=== PATIENT | female | born 1975 | race African-American/Black ===

== ENCOUNTER 2019-04-08 18:44 | Inpatient (IN) | payer OTHER ==
[2019-04-08 19:03] VITALS: BMI 17.4
--- NOTE | 2019-04-08 20:32 | HP ---
CIWA Score - Admission Criteria OASAS Guidelines: Admission for Medically Managed Detox: Requires at least one of the followin. CIWA greater than 12 2. Seizures within the past 24 hours 3. Delirium tremens within the past 24 hours 4. Hallucinations within the past 24 hours 5. Acute intervention needed for co occurring medical disorder 6. Acute intervention needed for co occurring psychiatric disorder 7. Severe withdrawal that cannot be handled at a lower level of care (continued vomiting, continued diarrhea, abnormal vital signs) requiring intravenous medication and/or fluids 8. Admission ROS S - HPI Chief Complaint: Seeking admission to Rehab Allergies/Adverse Reactions: Allergies Allergy/AdvReac Type Severity Reaction Status Date / Time ibuprofen [From Motrin] Allergy Itching Verified 04/08/19 18:56 History of Present Illness: 43 years old female with a history of marijuana and cocaine dependence is seeking admission to Rehab. Patient reports that she was in Rehab. in 2007. Patient denies past medical history and suicidal ideation at this time Exam Limitations: No Limitations - Ebola screening Have you traveled outside of the country in the last 21 days: No (N) Have you had contact with anyone from an Ebola affected area: No Do you have a fever: No - Review of Systems Constitutional: No Symptoms Reported EENT: reports: No Symptoms Reported Respiratory: reports: No Symptoms reported Cardiac: reports: No Symptoms Reported GI: reports: No Symptoms Reported : reports: No Symptoms Reported Musculoskeletal: reports: No Symptoms Reported Integumentary: reports: No Symptoms Reported Neuro: reports: No Symptoms reported Endocrine: reports: No Symptoms Reported Hematology: reports: No Symptoms Reported Psychiatric: reports: No Sypmtoms Reported, Mood/Affect Appropiate, Orientated x3 Other Systems: Reviewed and Negative Patient History - Patient Medical History Hx Anemia: No Hx Asthma: No Hx Chronic Obstructive Pulmonary Disease (COPD): No Hx Cancer: No Hx Cardiac Disorders: No Hx Congestive Heart Failure: No Hx Hypertension: No Hx Hypercholesterolemia: No HX Cerebrovascular Accident: No Hx Seizures: No Hx Diabetes: No Hx Gastrointestinal Disorders: No Hx Liver Disease: No Hx Genitourinary Disorders: No Hx Sexually Transmitted Disorders: No Hx Renal Disease (ESRD): No Hx Thyroid Disease: No Hx Human Immunodeficiency Virus (HIV): No (Negative 2019) Hx Hepatitis C: No Hx Depression: Yes (ot on medication) Hx Suicide Attempt: No (Denies suicidal ideation at this time) Hx Bipolar Disorder: No Hx Schizophrenia: No - Patient Surgical History Past Surgical History: No - PPD History Previous Implant?: Yes Documented Results: Negative w/o proof PPD to be Administered?: Yes - Reproductive History Patient is a Female of Child Bearing Age (11 -55 yrs old): Yes Last Menstrual Period: 03/20/19 Patient : No - Smoking Cessation Smoking history: Current every day smoker Have you smoked in the past 12 months: Yes Aproximately how many cigarettes per day: 3 Hx Chewing Tobacco Use: Yes Initiated information on smoking cessation: No 'Breaking Loose' booklet given: 04/08/19 - Substance & Tx. History Hx Alcohol Use: No Hx Substance Use: Yes Substance Use Type: Cocaine, Marijuana Hx Substance Use Treatment: Yes ([facility]. [place], [place]) - Substances abused Marijuana/Hashish Substance route: Smoking Frequency: Daily Amount used: $30 Age of first use: 13 Date of last use: 04/08/19 Cocaine Substance route: Inhalation Frequency: Daily Amount used: $100 Age of first use: 31 Date of last use: 04/07/19 Admission Physical Exam S - Vital Signs Vital Signs: Vital Signs - 24 hr 04/08/19 18:48 Temperature 97.8 F Pulse Rate 62 Respiratory 20 Rate Blood Pressure 115/69 - Physical General Appearance: Yes: Nourished, Appropriately Dressed HEENTM: Yes: Within Normal Limits, EOMI, Normal ENT Inspection, Normocephalic, Normal Voice, DANIELLE Respiratory: Yes: Lungs Clear, Normal Breath Sounds, No Respiratory Distress Neck: Yes: Within Normal Limits, No masses,lesions,Nodules Breast: Yes: Breast Exam Deferred, Surgical Scar Cardiology: Yes: Regular Rhythm Abdominal: Yes: Normal Bowel Sounds Genitourinary: Yes: Within Normal Limits Back: Yes: Normal Inspection Musculoskeletal: Yes: Within Normal Limits, Gait Steady Extremities: Yes: Normal Inspection Neurological: Yes: Normal Mood/Affect Integumentary: Yes: Within Normal Limits, Warm Lymphatic: Yes: Within Normal Limits - Diagnostic (1) Marijuana dependence Current Visit: Yes Status: Acute (2) Cocaine dependence Current Visit: Yes Status: Acute (3) Nicotine dependence Current Visit: Yes Status: Acute (4) Depression Current Visit: Yes Status: Acute Qualifiers: Depression Type: unspecified Qualified Code(s): F32.9 - Major depressive disorder, single episode, unspecified Cleared for Admission [facility] - Detox or Rehab [facility] Level of Care: Observation Bed Claeared for Rehab Admission: Yes Breathalyzer - Breathalyzer Breathalyzer: 0 Urine Drug Screen - Test Device Lot number: [id number] Expiration date: 12/03/20 - Control Is test valid?: Yes - Results Drug screen NEGATIVE: No Urine drug screen results: THC-Marijuana, DANA-Cocaine Inpatient Rehab Admission - Rehab Decision to Admit Inpatient rehab admission?: Yes - Initial Determination Are CD services needed?: No Free of communicable disease: Yes Not in need of hospitalization: Yes - Rehab Admission Criteria Previous failed treatment: Yes Poor recovery environment: Yes Comorbidities: Yes Lacks judgement: No Patient is meeting Inpatient Rehab admission criteria:: Yes
[2019-04-08] MEDS ORDERED: P-EPHED 60MG/TRIPROLIDI 2.5MG TABLET PO PRN (20:47)
[2019-04-08] MEDS ORDERED: guaiFENesin 200 MG/10 ML 10 ML UNIT-DOSE CUPS PO PRN (20:47)
[2019-04-08] MEDS ORDERED: MENTHOL/PHENOL 1 EACH UD MM PRN (20:47)
[2019-04-08] MEDS ORDERED: LOPERAMIDE HCL 2 MG CAPSULE PO PRN (20:47)
[2019-04-08] MEDS ORDERED: MAGNESIUM CITRATE 300 ML BOTTLE PO PRN (20:47)
[2019-04-08] MEDS ORDERED: MAGNESIUM HYDROX 2400MG/30ML ORAL SUSPENSION 30 ML CUP PO PRN (20:47)
[2019-04-08] MEDS ORDERED: NICOTINE POLACRILEX 2 MG GUM BUC PRN (20:47)
[2019-04-08] MEDS ORDERED: MAG HYDROX/AL HYDROX/SIMETH 30 ML UNIT-DOSE CUP PO PRN (20:47)
[2019-04-08] MEDS: THIAMINE HCL 100 MG TABLET (FP) PO SCH (22:18)
--- NOTE | 2019-04-09 09:04 | CONSULT ---
[facility] Psychiatric Consult - Data Date of interview: 04/09/19 Admission source: [facility] Identifying data: Patient is a 43 year old single female, mother of four, domiciled, and currently employed. This is one of multiple admissions for patient. Patient admitted to for marijuana and cocaine dependence. Substance Abuse History: Smoking Cessation. Smoking history: Current every day smoker. Have you smoked in the past 12 months: Yes. Aproximately how many cigarettes per day: 3. Hx Chewing Tobacco Use: Yes. Initiated information on smoking cessation: No. 'Breaking Loose' booklet given: 04/08/19. - Substance & Tx. History. Hx Alcohol Use: No. Hx Substance Use: Yes. Substance Use Type : Cocaine, Marijuana. Hx Substance Use Treatment: Yes ([facility]. [place], [place]). - Substances abused. Marijuana/Hashish. Substance route: Smoking. Frequency: Daily. Amount used: $30. Age of first use: 13. Date of last use: 04/08/19. Cocaine. Substance route: Inhalation. Frequency: Daily. Amount used: $100. Age of first use: 31. Date of last use: 04/07/19 Medical History: denies. Psychiatric History: Patient denies history of psychiatric hospitalizations, outpaient care, and suicide attempt. Reports receiving seroquel for insomnia when she was admitted to rehab on [facility] in 2006. At present patient reports stable mood but is experiencing mild anxiety and difficulty sleeping. Physical/Sexual Abuse/Trauma History: denies. Mental Status Exam - Mental Status Exam Alert and Oriented to: Time, Place, Person Cognitive Function: Good Patient Appearance: Well Groomed Mood: Euthymic Affect: Mood Congruent Patient Behavior: Cooperative Speech Pattern: Appropriate Voice Loudness: Normal Thought Process: Goal Oriented Thought Disorder: Not Present Hallucinations: Denies Suicidal Ideation: Denies Homicidal Ideation: Denies Insight/Judgement: Poor Sleep: Poorly Appetite: Fair Muscle strength/Tone: Normal Gait/Station: Normal Psychiatric Findings - Problem List ([place] 1, 2,3) (1) Substance-induced sleep disorder Current Visit: Yes Status: Acute (2) Cocaine dependence Current Visit: Yes Status: Acute (3) Marijuana dependence Current Visit: Yes Status: Acute - Initial Treatment Plan Initial Treatment Plan: Psychoeducation provided. Rehab in progress. Patient encouraged to accept melatonin 5mg for insomnia. Patient not interested in accepting seroquel for insomnia. Will also order vistaril 25mg q6h for anxiety. Benefits and side effects discussed. Verbal consent given.
[2019-04-09] MEDS: PRENATAL VITAMINS W/ FOLIC ACID TABLET (FP) PO SCH (10:02)
[2019-04-09] MEDS: NICOTINE 14 MG/24 HOURS TOPICAL PATCH TD SCH (10:02)
[2019-04-09 10:32] LABS: URINE APPEARANCE CLOUDY; URINE BILIRUBIN NEGATIVE (NEGATIVE); URINE COLOR YELLOW; URINE GLUCOSE (UA) NEGATIVE (NEGATIVE); URINE KETONE NEGATIVE (NEGATIVE); URINE LEUK ESTERASE NEGATIVE (NEGATIVE); URINE NITRITE NEGATIVE (NEGATIVE); URINE PROTEIN NEGATIVE (NEGATIVE)
--- NOTE | 2019-04-09 12:02 | EKG ---
Test Reason : Blood Pressure : / mmHG Vent. Rate : 062 BPM Atrial Rate : 062 BPM P-R Int : 144 ms QRS Dur : 100 ms QT Int : 438 ms P-R-T Axes : 049 061 042 degrees QTc Int : 444 ms NORMAL SINUS RHYTHM NORMAL ECG NO PREVIOUS ECGS AVAILABLE Confirmed by ALLEN BROWN MD ([id number]) on 04/09/2019 12:02:14 PM Referred By: Confirmed By:ALLEN BROWN MD
[2019-04-09 15:07] LABS: HEMATOCRIT 32.9 % (32.4-45.2); HEMOGLOBIN 10.9 GM/dL (10.7-15.3); MCH 29.4 pg (25.7-33.7); MEAN CELL VOLUME 88.9 fl (80-96); MEAN PLT VOLUME 9.2 fl (7.5-11.1); PLATELET COUNT 284 K/MM3 (134-434); RDW 15.7 % (11.6-15.6); WHITE BLOOD COUNT 3.2 K/mm3 (4.0-10.0)
[2019-04-09 15:10] LABS: ALBUMIN 3.4 g/dl (3.4-5.0); BILIRUBIN,TOTAL 0.2 mg/dL (0.2-1); BLOOD UREA NITROGEN 8.1 mg/dL (7-18); CALCIUM 8.7 mg/dL (8.5-10.1); CREATININE 0.6 mg/dL (0.55-1.3); POTASSIUM 3.5 mmol/L (3.5-5.1); TOT PROT 6.9 g/dl (6.4-8.2)
[2019-04-09] MEDS ORDERED: PT OWN MED DRAWER 7, Y5N ONE ×3 (19:51→23:32)
[2019-04-09] MEDS: MELATONIN 5 MG TABLETS PO PRN (21:25)
[2019-04-09] MEDS: THIAMINE HCL 100 MG TABLET (FP) PO SCH (21:25)
[2019-04-10] MEDS: PRENATAL VITAMINS W/ FOLIC ACID TABLET (FP) PO SCH (09:10)
[2019-04-10] MEDS: NICOTINE 14 MG/24 HOURS TOPICAL PATCH TD SCH (09:11)
[2019-04-10] MEDS: THIAMINE HCL 100 MG TABLET (FP) PO SCH (21:36)
[2019-04-10] MEDS: MELATONIN 5 MG TABLETS PO PRN (21:36)
[2019-04-10] MEDS: hydrOXYzine PAMOATE 25 MG CAPSULE (FP) PO PRN (21:37)
[2019-04-10] MEDS ORDERED: PT OWN MED DRAWER 7, Y5N ONE (21:53)
[2019-04-10] MEDS ORDERED: ACETAMINOPHEN 325 MG TABLET (FP) ONE (21:53)
[2019-04-11] MEDS: PRENATAL VITAMINS W/ FOLIC ACID TABLET (FP) PO SCH (09:47)
[2019-04-11] MEDS: NICOTINE 14 MG/24 HOURS TOPICAL PATCH TD SCH (09:47)
[2019-04-11] MEDS: THIAMINE HCL 100 MG TABLET (FP) PO SCH (21:42)
[2019-04-11] MEDS: MELATONIN 5 MG TABLETS PO PRN (21:42)
[2019-04-11] MEDS: hydrOXYzine PAMOATE 25 MG CAPSULE (FP) PO PRN (21:43)
[2019-04-12] MEDS: NICOTINE 14 MG/24 HOURS TOPICAL PATCH TD SCH (09:54)
[2019-04-12] MEDS: PRENATAL VITAMINS W/ FOLIC ACID TABLET (FP) PO SCH (09:54)
[2019-04-12] MEDS: ACETAMINOPHEN 325 MG TABLET (FP) PO PRN (10:50)
--- NOTE | 2019-04-12 13:12 | PN ---
[facility] Progress Note Note: Patient presents with c/o migraine headache and mild nausea. Patient states she has taken Imitrex in past for symptoms . Patient denies dizziness, aura and blurry vision. Vital Signs Temperature 97.9 F 04/12/19 07:09 Pulse Rate 62 04/12/19 07:09 Respiratory Rate 18 04/12/19 07:09 Blood Pressure 120/55 L 04/12/19 07:09 O2 Sat by Pulse Oximetry (%) Laboratory Tests 04/08/19 04/08/19 04/08/19 10:00 10:00 10:00 WBC 3.2 L RBC 3.70 Hgb 10.9 Hct 32.9 MCV 88.9 MCH 29.4 MCHC 33.0 RDW 15.7 H Plt Count 284 MPV 9.2 Sodium 142 Potassium 3.5 Chloride 107 Carbon Dioxide 28 Anion Gap 7 L BUN 8.1 Creatinine 0.6 Est GFR (CKD-EPI)AfAm 129.39 Est GFR (CKD-EPI)NonAf 111.64 Random Glucose 83 Calcium 8.7 Total Bilirubin 0.2 AST 12 L ALT 11 L Alkaline Phosphatase 73 Total Protein 6.9 Albumin 3.4 Urine Color Urine Appearance Urine pH Ur Specific [place] Urine Protein Urine Glucose (UA) Urine Ketones Urine Blood Urine Nitrite Urine Bilirubin Urine Urobilinogen Ur Leukocyte Esterase POC Urine HCG, Qual RPR Titer Nonreactive 04/08/19 04/09/19 20:01 09:00 WBC RBC Hgb Hct MCV MCH MCHC RDW Plt Count MPV Sodium Potassium Chloride Carbon Dioxide Anion Gap BUN Creatinine Est GFR (CKD-EPI)AfAm Est GFR (CKD-EPI)NonAf Random Glucose Calcium Total Bilirubin AST ALT Alkaline Phosphatase Total Protein Albumin Urine Color Yellow Urine Appearance Cloudy Urine pH 7.0 Ur Specific [place] 1.022 Urine Protein Negative Urine Glucose (UA) Negative Urine Ketones Negative Urine Blood Negative Urine Nitrite Negative Urine Bilirubin Negative Urine Urobilinogen 1.0 Ur Leukocyte Esterase Negative POC Urine HCG, Qual Negative RPR Titer PE alert and oriented x 3 skin warm and dry +perrla, eoms intact bl neck supple, no jvd ext full rom, amb ad allan A/P migraines will start imitrex 25mg po bid prn monitor clinically
[2019-04-12] MEDS: THIAMINE HCL 100 MG TABLET (FP) PO SCH (21:16)
[2019-04-12] MEDS: MELATONIN 5 MG TABLETS PO PRN (21:16)
[2019-04-12] MEDS: hydrOXYzine PAMOATE 25 MG CAPSULE (FP) PO PRN (21:18)
[2019-04-13] MEDS: NICOTINE 14 MG/24 HOURS TOPICAL PATCH TD SCH (09:54)
[2019-04-13] MEDS: PRENATAL VITAMINS W/ FOLIC ACID TABLET (FP) PO SCH (09:54)
[2019-04-13] MEDS: SUMAtriptan SUCCINATE 25 MG TABLET PO PRN (10:02)
[2019-04-13] MEDS: hydrOXYzine PAMOATE 25 MG CAPSULE (FP) PO PRN ×2 (11:22→22:24)
--- NOTE | 2019-04-13 12:57 | PN ---
Psychiatric Progress Note Vital Signs: Vital Signs Period Temp Pulse Resp BP Sys/Layne Pulse Ox Last 24 Hr 97.9 F 71 16-18 118/78 Date of Session: 04/13/19 Chief Complaint:: " I have anxiety and i am not sleeping at all." HPI: Patient admitted to for marijuana and cocaine dependence. Patient currently c/o insomnia. ROS: Patient is coherent, alert + oriented X3. Current Medications: Active Medications Generic Name Dose Route Start Last Admin Trade Name Freq PRN Reason Stop Dose Admin Acetaminophen 650 mg 04/08/19 20:47 04/12/19 10:50 Tylenol - PO 650 mg Q4H PRN Administration FEVER Al Hydroxide/Mg Hydroxide 30 ml 04/08/19 20:47 Mylanta Oral Suspension - PO Q6H PRN DYSPEPSIA Eucalyptus/Menthol/Phenol/Sorbitol 1 each 04/08/19 20:47 Cepastat Lozenge - MM Q4H PRN SORE THROAT Guaifenesin 10 ml 04/08/19 20:47 Robitussin - PO Q6H PRN COUGH Hydroxyzine Pamoate 25 mg 04/09/19 09:14 04/13/19 11:22 Vistaril - PO 25 mg Q6H PRN Administration ANXIETY Loperamide HCl 4 mg 04/08/19 20:47 Imodium - PO Q6H PRN DIARRHEA Magnesium Citrate 300 ml 04/08/19 20:47 Citroma - PO Q48H PRN CONSTIPATION Magnesium Hydroxide 30 ml 04/08/19 20:47 Milk Of Magnesia - PO DAILY PRN CONSTIPATION Melatonin 5 mg 04/08/19 22:00 04/12/19 21:16 Melatonin PO 5 mg HS PRN Administration INSOMNIA Nicotine 14 mg 04/09/19 10:00 04/13/19 09:54 Nicoderm Patch - TD Not Given DAILY ALEXANDER Nicotine Polacrilex 2 mg 04/08/19 20:47 Nicorette Gum - BUC Q2H PRN NICOTINE REPLACEMENT RX Multivit/Folic Acid/Iron 1 tab 04/09/19 10:00 04/13/19 09:54 Vitamins (Sjr) - PO 1 tab DAILY ALEXANDER Administration Pseudoephedrine/Triprolidine 1 combo 04/08/19 20:47 Actifed - PO TID PRN NASAL CONGESTION Sumatriptan Succinate 25 mg 04/12/19 13:08 04/13/19 10:02 Imitrex - PO 25 mg BID PRN Administration HEADACHE Thiamine HCl 100 mg 04/08/19 22:00 04/12/19 21:16 Vitamin B1 - PO 100 mg HS ALEXANDER Administration Medication(s) Change(s): Yes. Current Side Effect: No Lab tests ordered: No Lab tests reviewed: Yes Provider note:: Patient reports anxiety amd difficulty sleeping. Patient able to accept vistaril 25mg this morning with favorable effects. Stated it was the first time she took the medication and stated that it was effective. Will order Belsomra 10mg HS PRN for insomnia. Patient educated on the importance of sleep hygiene. Benefits and side effects discussed. Verbal consent given. Total face to face time:: 25 Mental Status Exam - Mental Status Exam Alert and Oriented to: Time, Place, Person Cognitive Function: Good Patient Appearance: Well Groomed Mood: Euthymic Affect: Mood Congruent Patient Behavior: Cooperative Speech Pattern: Appropriate Voice Loudness: Normal Thought Process: Goal Oriented Thought Disorder: Not Present Hallucinations: Denies Suicidal Ideation: Denies Homicidal Ideation: Denies Insight/Judgement: Poor Sleep: Poorly Appetite: Fair Muscle strength/Tone: Normal Gait/Station: Normal Psychiatric Treatment Plan - Problem List (1) Substance-induced sleep disorder Current Visit: Yes (2) Cocaine dependence Current Visit: Yes (3) Marijuana dependence Current Visit: Yes
[2019-04-13] MEDS ORDERED: PT OWN MED DRAWER 7, Y5N ONE ×3 (21:02→22:29)
[2019-04-13] MEDS: THIAMINE HCL 100 MG TABLET (FP) PO SCH (21:17)
[2019-04-13] MEDS: MELATONIN 5 MG TABLETS PO PRN (21:17)
[2019-04-13] MEDS ORDERED: SUVOREXANT 10 MG TABLET PO PRN (22:00)
[2019-04-14] MEDS: NICOTINE 14 MG/24 HOURS TOPICAL PATCH TD SCH (09:39)
[2019-04-14] MEDS: SUMAtriptan SUCCINATE 25 MG TABLET PO PRN (09:39)
[2019-04-14] MEDS: PRENATAL VITAMINS W/ FOLIC ACID TABLET (FP) PO SCH (09:39)
[2019-04-14] MEDS: THIAMINE HCL 100 MG TABLET (FP) PO SCH (21:34)
[2019-04-14] MEDS: MELATONIN 5 MG TABLETS PO PRN (21:34)
[2019-04-15] MEDS: ACETAMINOPHEN 325 MG TABLET (FP) PO PRN (09:49)
[2019-04-15] MEDS: NICOTINE 14 MG/24 HOURS TOPICAL PATCH TD SCH (09:50)
[2019-04-15] MEDS: PRENATAL VITAMINS W/ FOLIC ACID TABLET (FP) PO SCH (09:50)
--- NOTE | 2019-04-15 11:01 | PN ---
Psychiatric Progress Note Vital Signs: Vital Signs Period Temp Pulse Resp BP Sys/Layne Pulse Ox Last 24 Hr 98.1 F 80 16-16 148/69 Date of Session: 04/15/19 Chief Complaint:: " I'm not sleeping at all." HPI: Patient admitted to [facility] for marijuana and cocaine dependence. ROS: Patient is coherent, alert + oriented X3. Current Medications: Active Medications Generic Name Dose Route Start Last Admin Trade Name Freq PRN Reason Stop Dose Admin Acetaminophen 650 mg 04/08/19 20:47 04/15/19 09:49 Tylenol - PO 650 mg Q4H PRN Administration FEVER Al Hydroxide/Mg Hydroxide 30 ml 04/08/19 20:47 Mylanta Oral Suspension - PO Q6H PRN DYSPEPSIA Eucalyptus/Menthol/Phenol/Sorbitol 1 each 04/08/19 20:47 Cepastat Lozenge - MM Q4H PRN SORE THROAT Guaifenesin 10 ml 04/08/19 20:47 Robitussin - PO Q6H PRN COUGH Hydroxyzine Pamoate 25 mg 04/09/19 09:14 04/13/19 22:24 Vistaril - PO 25 mg Q6H PRN Administration ANXIETY Loperamide HCl 4 mg 04/08/19 20:47 Imodium - PO Q6H PRN DIARRHEA Magnesium Citrate 300 ml 04/08/19 20:47 Citroma - PO Q48H PRN CONSTIPATION Magnesium Hydroxide 30 ml 04/08/19 20:47 Milk Of Magnesia - PO DAILY PRN CONSTIPATION Melatonin 10 mg 04/14/19 22:00 04/14/19 21:34 Melatonin PO 10 mg HS PRN Administration INSOMNIA Nicotine 14 mg 04/09/19 10:00 04/15/19 09:50 Nicoderm Patch - TD Not Given DAILY ALEXANDER Nicotine Polacrilex 2 mg 04/08/19 20:47 Nicorette Gum - BUC Q2H PRN NICOTINE REPLACEMENT RX Multivit/Folic Acid/Iron 1 tab 04/09/19 10:00 04/15/19 09:50 Vitamins (Sjr) - PO 1 tab DAILY ALEXANDER Administration Pseudoephedrine/Triprolidine 1 combo 04/08/19 20:47 Actifed - PO TID PRN NASAL CONGESTION Sumatriptan Succinate 25 mg 04/12/19 13:08 04/14/19 09:39 Imitrex - PO 25 mg BID PRN Administration HEADACHE Suvorexant 10 mg 04/13/19 22:00 04/13/19 21:17 Belsomra PO 10 mg HS PRN Administration insomnia Thiamine HCl 100 mg 04/08/19 22:00 04/14/19 21:34 Vitamin B1 - PO 100 mg HS ALEXANDER Administration Medication(s) Change(s): Yes. Current Side Effect: No Lab tests ordered: No Lab tests reviewed: Yes Provider note:: Patient reports poor sleep despite accepting Belsomra 15mg HS + Melatonin 10mg. Stated to travel writer that the medication is not effective and she dislikes how her body feels in the morning. Patient reports favorable effects from accepting seroquel 25mg HS + benadryl 25mg for insomnia when she was last here in 2006. Will d/c Belsomra 15mg HS + Melatonin 10mg HS. Will order Seroquel 25mg + Benadryl 25mg HS prn for insomnia. Benefits and side effects discussed. Verbal consent given. Total face to face time:: 25 Mental Status Exam - Mental Status Exam Alert and Oriented to: Time, Place, Person Cognitive Function: Good Patient Appearance: Well Groomed Mood: Euthymic Affect: Mood Congruent Patient Behavior: Cooperative Speech Pattern: Appropriate Voice Loudness: Normal Thought Process: Goal Oriented Thought Disorder: Not Present Hallucinations: Denies Suicidal Ideation: Denies Homicidal Ideation: Denies Insight/Judgement: Poor Sleep: Poorly Appetite: Fair Muscle strength/Tone: Normal Gait/Station: Normal Psychiatric Treatment Plan - Problem List (1) Substance-induced sleep disorder Current Visit: Yes (2) Cocaine dependence Current Visit: Yes (3) Marijuana dependence Current Visit: Yes
[2019-04-15] MEDS ORDERED: PT OWN MED DRAWER 7, Y5N ONE ×3 (14:08→21:12)
[2019-04-15] MEDS: THIAMINE HCL 100 MG TABLET (FP) PO SCH (21:22)
[2019-04-15] MEDS: QUEtiapine FUMARATE 25 MG TABLET (FP) PO SCH (21:23)
[2019-04-16] MEDS: NICOTINE 14 MG/24 HOURS TOPICAL PATCH TD SCH (09:35)
[2019-04-16] MEDS: PRENATAL VITAMINS W/ FOLIC ACID TABLET (FP) PO SCH (09:35)
[2019-04-16] MEDS: QUEtiapine FUMARATE 25 MG TABLET (FP) PO SCH (21:06)
[2019-04-16] MEDS: THIAMINE HCL 100 MG TABLET (FP) PO SCH (21:06)
[2019-04-16] MEDS: diphenhydrAMINE HCL 25 MG CAPSULE (FP) PO PRN (21:07)
[2019-04-17] MEDS: NICOTINE 14 MG/24 HOURS TOPICAL PATCH TD SCH (09:48)
[2019-04-17] MEDS: PRENATAL VITAMINS W/ FOLIC ACID TABLET (FP) PO SCH (09:48)
[2019-04-17] MEDS: THIAMINE HCL 100 MG TABLET (FP) PO SCH (21:35)
[2019-04-17] MEDS: QUEtiapine FUMARATE 25 MG TABLET (FP) PO SCH (21:35)
[2019-04-17] MEDS: diphenhydrAMINE HCL 25 MG CAPSULE (FP) PO PRN (21:35)
[2019-04-18] MEDS: PRENATAL VITAMINS W/ FOLIC ACID TABLET (FP) PO SCH (09:56)
[2019-04-18] MEDS: NICOTINE 14 MG/24 HOURS TOPICAL PATCH TD SCH (09:56)
[2019-04-18] MEDS: QUEtiapine FUMARATE 25 MG TABLET (FP) PO SCH (21:57)
[2019-04-18] MEDS: THIAMINE HCL 100 MG TABLET (FP) PO SCH (21:57)
[2019-04-18] MEDS: diphenhydrAMINE HCL 25 MG CAPSULE (FP) PO PRN (21:57)
[2019-04-19] MEDS: PRENATAL VITAMINS W/ FOLIC ACID TABLET (FP) PO SCH (09:40)
[2019-04-19] MEDS: NICOTINE 14 MG/24 HOURS TOPICAL PATCH TD SCH (09:40)
[2019-04-19] MEDS ORDERED: PT OWN MED DRAWER 7, Y5N ONE (12:31)
[2019-04-19] MEDS: diphenhydrAMINE HCL 25 MG CAPSULE (FP) PO PRN (21:35)
[2019-04-19] MEDS: THIAMINE HCL 100 MG TABLET (FP) PO SCH (21:35)
[2019-04-19] MEDS: QUEtiapine FUMARATE 25 MG TABLET (FP) PO SCH (21:35)
[2019-04-20] MEDS: NICOTINE 14 MG/24 HOURS TOPICAL PATCH TD SCH (09:35)
[2019-04-20] MEDS: PRENATAL VITAMINS W/ FOLIC ACID TABLET (FP) PO SCH (09:35)
[2019-04-20] MEDS: ACETAMINOPHEN 325 MG TABLET (FP) PO PRN (18:19)
[2019-04-20] MEDS: THIAMINE HCL 100 MG TABLET (FP) PO SCH (21:37)
[2019-04-20] MEDS: QUEtiapine FUMARATE 25 MG TABLET (FP) PO SCH (21:37)
[2019-04-20] MEDS: diphenhydrAMINE HCL 25 MG CAPSULE (FP) PO PRN (21:38)
[2019-04-21] MEDS: NICOTINE 14 MG/24 HOURS TOPICAL PATCH TD SCH (09:35)
[2019-04-21] MEDS: PRENATAL VITAMINS W/ FOLIC ACID TABLET (FP) PO SCH (09:35)
--- NOTE | 2019-04-21 14:52 | PN ---
[facility] Progress Note Note: Patient is scheduled for discharge tomorrow. Script for 30 days supply of Seroquel 25 mg/hs will be electronically transmitted to [facility] at [address] [place] [id number]
[2019-04-21] MEDS ORDERED: PT OWN MED DRAWER 7, Y5N ONE (21:08)
[2019-04-21] MEDS: THIAMINE HCL 100 MG TABLET (FP) PO SCH (21:23)
[2019-04-21] MEDS: QUEtiapine FUMARATE 25 MG TABLET (FP) PO SCH (21:24)
[2019-04-21] MEDS: MELATONIN 5 MG TABLETS PO PRN (21:24)
[2019-04-21] MEDS: diphenhydrAMINE HCL 25 MG CAPSULE (FP) PO PRN (21:24)
[2019-04-22 06:57] VITALS: BP 117/76; PULSE 75; TEMP 97.8
--- NOTE | 2019-04-22 08:23 | DS ---
[facility] Rehab Discharge Summary - [facility] Rehab Discharge Summary Admission Date: 04/08/19 Discharge Date: 04/22/19 - History Present History: Cannabis dependence, Cocaine dependence Additional Comments: Pt is a 43 y/o female with a hx of cocaine and marijuana dependence admitted to rehab and discharged today. Pt reports she is going home to her family will be going to her AA meeting on [facility]. Reports she has primary care with [facility] and will be going there today. Pertinent Past History: Depression - Discharge Physical Exam Vital Signs: Vital Signs Temperature 97.8 F 04/22/19 06:56 Pulse Rate 75 04/22/19 06:56 Respiratory Rate 18 04/22/19 06:56 Blood Pressure 117/76 04/22/19 06:56 O2 Sat by Pulse Oximetry (%) General:Thin-looking female, well groomed Alert o x 3 nad oob ambulating with steady gait cardiac:s1 s2,rrr lungs:cta, shani. abdomen:softh,flat,+bs, nt extremities/skin:no edema,full ROM,skin intake Pertinent Admission Physical Exam Findings: Laboratory Tests 04/08/19 04/08/19 04/08/19 10:00 10:00 10:00 WBC 3.2 L RBC 3.70 Hgb 10.9 Hct 32.9 MCV 88.9 MCH 29.4 MCHC 33.0 RDW 15.7 H Plt Count 284 MPV 9.2 Sodium 142 Potassium 3.5 Chloride 107 Carbon Dioxide 28 Anion Gap 7 L BUN 8.1 Creatinine 0.6 Est GFR (CKD-EPI)AfAm 129.39 Est GFR (CKD-EPI)NonAf 111.64 Random Glucose 83 Calcium 8.7 Total Bilirubin 0.2 AST 12 L ALT 11 L Alkaline Phosphatase 73 Total Protein 6.9 Albumin 3.4 Urine Color Urine Appearance Urine pH Ur Specific [place] Urine Protein Urine Glucose (UA) Urine Ketones Urine Blood Urine Nitrite Urine Bilirubin Urine Urobilinogen Ur Leukocyte Esterase POC Urine HCG, Qual RPR Titer Nonreactive 04/08/19 04/09/19 20:01 09:00 WBC RBC Hgb Hct MCV MCH MCHC RDW Plt Count MPV Sodium Potassium Chloride Carbon Dioxide Anion Gap BUN Creatinine Est GFR (CKD-EPI)AfAm Est GFR (CKD-EPI)NonAf Random Glucose Calcium Total Bilirubin AST ALT Alkaline Phosphatase Total Protein Albumin Urine Color Yellow Urine Appearance Cloudy Urine pH 7.0 Ur Specific [place] 1.022 Urine Protein Negative Urine Glucose (UA) Negative Urine Ketones Negative Urine Blood Negative Urine Nitrite Negative Urine Bilirubin Negative Urine Urobilinogen 1.0 Ur Leukocyte Esterase Negative POC Urine HCG, Qual Negative RPR Titer Unremarkable - Treatment Discharge Condition: Discharge condition good Hospital Course: Rehabilitated safely and responded well Pt wants to continue with her AA meeting in [place], [place] and declined any other offer. - Medication Discharge Medications: Ambulatory Orders Quetiapine Fumarate [Seroquel -] 25 mg PO HS #30 tablet 04/21/19 - Medication-Assisted Treatment (MAT) Medication-Assisted Treatment (MAT): No - Discharge Instructions Diet, activity, other medical instructions: Diet:Regular Activity: oob ad allan Other medical instructions:Follow up with CD aftercare as recommended/AA meetings. follow up with primary care at [facility], [place], [place] within 1-2 weeks after discharge and as needed. - Diagnosis (1) Cocaine dependence Status: Chronic Qualifiers: Substance use status: uncomplicated Qualified Code(s): F14.20 - Cocaine dependence, uncomplicated (2) Marijuana dependence Status: Chronic (3) Nicotine dependence Status: Chronic Qualifiers: Nicotine product type: cigarettes Substance use status: uncomplicated Qualified Code(s): F17.210 - Nicotine dependence, cigarettes, uncomplicated - Follow-up Referral Minutes to complete discharge: 20 - AMA Did Patient Leave Against Medical Advice: No
--- NOTE | 2019-04-22 08:25 | PREP.REFER ---
HIV PrEP/PEP - PrEP HIV Risk Assessment When was your last HIV test?: 02/18/19 HIV Test offered: Refused (pt reports she does not need it at this time.) Are you concerned about any sexual encounters past 6 months?: No Have you had a STI in the last 6 months?: No Have you shared needles or other equipment?: No Are you interested in daily medication to help prevent HIV?: No Recommendation: None at this time Comment: Pt denies risky sexual behavior and not interested in PrEP
[2019-04-22] MEDS: ACETAMINOPHEN 325 MG TABLET (FP) PO PRN (08:53)
[2019-04-22] MEDS: NICOTINE 14 MG/24 HOURS TOPICAL PATCH TD SCH (09:06)
[2019-04-22] MEDS: PRENATAL VITAMINS W/ FOLIC ACID TABLET (FP) PO SCH (09:06)
== END 2019-04-22 09:45 | disposition home or self-care (01) | DRG 772 ==
LOC: YASAS 18:44 → Y3E 21:10
PROVIDERS: ADMIT Neuromusculoskeletal Medicine & OMM; ATTEND Neuromusculoskeletal Medicine & OMM
PROC: HZ42ZZZ Group Counseling for Substance Abuse Treatment, Cognitive-Behavioral (ICD-10-PCS; principal; 2019-04-08)
DX: F14.20 Cocaine dependence, uncomplicated (principal); F12.20 Cannabis dependence, uncomplicated; F17.210 Nicotine dependence, cigarettes, uncomplicated; F19.282 Other psychoactive substance dependence with psychoactive substance-induced sleep disorder; F32.9 Major depressive disorder, single episode, unspecified; G43.909 Migraine, unspecified, not intractable, without status migrainosus; Z88.6 Allergy status to analgesic agent
CPT/HCPCS: 36415; 80053; 81003; 81025; 85027; 86593; 93005; 93010